=== PATIENT | female | born 1960 ===

== ENCOUNTER 2017-09-07 13:21 | Emergency (ER) | payer OTHER ==
[2017-09-07 13:23] VITALS: BMI 24.5
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
[2017-09-07 16:11] VITALS: BP 129/75; PULSE 90; RESP 20; TEMP 98.6; O2SAT 97
== END 2017-09-07 16:10 | disposition home or self-care (01) ==
LOC: ED 13:21
DX: M79.605 Pain in left leg (principal)